=== PATIENT | female | born 1960 | race Hispanic/Latino ===

== ENCOUNTER 2019-01-10 14:52 | Emergency (ER) | payer OTHER ==
[~2019-01-10 14:52] MED LIST: ALPR0.25 PO; AMYL1CAP66 PO; FENT-77 TD; GABA-531 PO; HYDR1VIA2 IJ; LEVO500T2 PO; METR500T PO; PANT40I IV; SERT50TA12 PO; SIME80TA12 PO; [UNRECOGNIZED DRUG - OTHER]
[2019-01-10 15:53] LABS: APPEARANCE,URINE Clear (CLEAR); BILIRUBIN,URINE Negative (NEGATIVE); COLOR,URINE Yellow (YELLOW); GLUCOSE, URINE (UA) Negative (NEGATIVE); KETONES,URINE Negative (NEGATIVE); LEUKOCYTE ESTERASE ,URINE Trace (NEGATIVE); NITRATE,URINE Negative (NEGATIVE); OCCULT BLOOD,URINE Negative (NEGATIVE); PH,URINE 5.5 (5.0-8.0); PROTEIN,URINE Trace mg/dL (NEGATIVE); UROBILINOGEN,URINE 0.2 mg/dL (0.2-1.0)
[2019-01-10 16:15] LABS: RBC,URINE 0-1 /HPF (0-1)
[2019-01-10 16:16] LABS: BASOPHILS % (AUTO) 0.4 % (0.0-5.0); EOSINOPHILS % (AUTO) 0.3 % (0.0-8.0); HEMATOCRIT 30.9 % (36-48); LYMPHOCYTES % (AUTO) 17.1 % (21.0-51.0); MEAN CORPUSCULAR HGB CONC 32.9 g/dL (32.0-36.0); MONOCYTES % (AUTO) 5.4 % (3.0-13.0); NEUTROPHILS % (AUTO) 76.8 % (40.0-77.0); NUCLEATED RED BLOOD CELLS 0.1 % (0.0-0.19); PLATELET COUNT (AUTO) 251 K/uL (130-400); RED BLOOD CELL COUNT(AUTO) 4.07 MIL/uL (4.00-5.50); WHITE BLOOD COUNT (AUTO) 7.5 K/uL (4.8-10.8)
[2019-01-10 16:16] LABS: BACTERIA,URINE Rare /HPF (None Seen); SQUAMOUS EPITHELIAL CELL,UR Few /HPF (0-2)
[2019-01-10 16:30] LABS: CREATININE 0.7 mg/dL (0.5-1.5)
[2019-01-10 16:34] LABS: ALBUMIN 2.8 g/dL (3.5-5.0); BILIRUBIN,TOTAL 0.2 mg/dL (0.2-1.0); TOTAL PROTEIN, SERUM 7.8 g/dL (6.0-8.3)
[2019-01-10] MEDS ORDERED: ACETAMINOPHEN-CODEINE 300/30MG TAB ONE (16:40)
[2019-01-10] MEDS ORDERED: IOHEXOL-350 75 ML VIAL IV ONE (16:47)
[2019-01-10] MEDS ORDERED: POTASSIUM CHLORIDE 20 MEQ ERTAB PO ONE ×2 (17:06→17:07)
== END 2019-01-10 18:35 | disposition home or self-care (01) ==
LOC: EDH 14:52
DX: K86.3 Pseudocyst of pancreas (principal); I10 Essential (primary) hypertension; E11.9 Type 2 diabetes mellitus without complications; Z88.0 Allergy status to penicillin; Z88.5 Allergy status to narcotic agent; Z90.710 Acquired absence of both cervix and uterus; Z90.49 Acquired absence of other specified parts of digestive tract
CPT/HCPCS: 36415; 74177; 80053; 81001; 83690; 85025; 96360; 99285; Q9967

== ENCOUNTER 2019-02-03 11:10 | Inpatient (IN) | payer OTHER ==
[~2019-02-03] VITALS: Ht 160 cm; Wt 73.8 kg
[2019-02-03 12:01] LABS: BASOPHILS % (AUTO) 0.8 % (0.0-5.0); EOSINOPHILS % (AUTO) 0.6 % (0.0-8.0); HEMATOCRIT 28.6 % (36-48); MEAN CORPUSCULAR HEMOGLOBIN 25.2 pg (27.0-33.0); MEAN CORPUSCULAR VOLUME 76.4 fL (79-99); MONOCYTES % (AUTO) 9.4 % (3.0-13.0); NEUTROPHILS % (AUTO) 70.2 % (40.0-77.0); PLATELET COUNT (AUTO) 209 K/uL (130-400); RED BLOOD CELL COUNT(AUTO) 3.74 MIL/uL (4.00-5.50); RED CELL DISTRIBUTION WIDTH 16.2 % (11.0-15.5); WHITE BLOOD COUNT (AUTO) 6.4 K/uL (4.8-10.8)
[2019-02-03 12:09] LABS: APPEARANCE,URINE CLEAR (CLEAR); BILIRUBIN,URINE NEGATIVE (NEGATIVE); COLOR,URINE YELLOW (YELLOW); GLUCOSE, URINE (UA) NEGATIVE (NEGATIVE); KETONES,URINE NEGATIVE (NEGATIVE); LEUKOCYTE ESTERASE ,URINE TRACE (NEGATIVE); NITRATE,URINE NEGATIVE (NEGATIVE); OCCULT BLOOD,URINE NEGATIVE (NEGATIVE); PH,URINE 5.5 (5.0-8.0); PROTEIN,URINE NEGATIVE (NEGATIVE); UROBILINOGEN,URINE 0.2 mg/dL (0.2-1.0)
[2019-02-03] MEDS ORDERED: SODIUM CHLORIDE 0.9% 1000ML 1,000 ML IV ONE (12:10)
[2019-02-03] MEDS ORDERED: FENTANYL CITRATE PF 50 MCG/1 ML 2ML VIAL IVP ONE (12:16)
[2019-02-03] MEDS ORDERED: FAMOTIDINE/PF 20 MG/2 ML VIAL IV ONE (12:16)
[2019-02-03 12:17] LABS: CREATININE 1.1 mg/dL (0.5-1.5); POTASSIUM 3.5 mmol/L (3.5-5.1)
[2019-02-03 12:19] LABS: BACTERIA,URINE Few /HPF (None Seen); WBC,URINE 0-1 /HPF (0-1)
[2019-02-03 12:20] LABS: RBC,URINE 0-1 /HPF (0-1)
[2019-02-03 12:21] LABS: ALBUMIN 2.9 g/dL (3.5-5.0); BILIRUBIN,TOTAL 0.3 mg/dL (0.2-1.0); TOTAL PROTEIN, SERUM 8.2 g/dL (6.0-8.3)
[2019-02-03] MEDS ORDERED: 0.9% SODIUM CHLORIDE 1000 ML IV BAG IV ONE (12:57)
[2019-02-03] MEDS: LACTATED RINGERS 1000ML 1,000 ML IV SCH (16:15)
[2019-02-03] MEDS ORDERED: LEVOFLOXACIN 500 MG/D5W 100 ML 100 ML IV SCH (16:15)
[2019-02-03] MEDS ORDERED: ACETAMINOPHEN 325 MG TAB PO PRN (16:15)
[2019-02-03] MEDS ORDERED: METRONIDAZOLE 500MG/100ML BAG 100 ML ONE (16:38)
[2019-02-03] MEDS ORDERED: LACTATED RINGERS 1000ML 1,000 ML IV ONE (16:40)
[2019-02-03] MEDS ORDERED: HYDROMORPHONE 1 MG/1 ML AMP ONE (16:40)
[2019-02-03 19:12] VITALS: BP 131/73
[2019-02-03] MEDS: METRONIDAZOLE 500MG/100ML BAG 100 ML IV SCH (19:53)
[2019-02-03] MEDS: HYDROMORPHONE HCL 0.5 MG/0.5 ML ML IVP PRN (19:54)
[2019-02-03] MEDS: FAMOTIDINE/PF 20 MG/2 ML VIAL IV SCH (19:54)
[2019-02-03] MEDS: INSULIN HUMULIN R 100 UNIT/ML 3ML SQ SCH (21:00)
[2019-02-03] MEDS: ONDANSETRON HCL 4 MG/2 ML VIAL IV PRN (21:06)
[2019-02-04 00:24] VITALS: BP 106/68
[2019-02-04] MEDS: METRONIDAZOLE 500MG/100ML BAG 100 ML IV SCH ×3 (00:36→15:47)
[2019-02-04] MEDS: LACTATED RINGERS 1000ML 1,000 ML IV SCH ×2 (00:36→08:26)
[2019-02-04] MEDS: HYDROMORPHONE HCL 0.5 MG/0.5 ML ML IVP PRN ×3 (02:21→15:47)
[2019-02-04] MEDS: ONDANSETRON HCL 4 MG/2 ML VIAL IV PRN ×2 (02:29→15:53)
[2019-02-04 03:15] VITALS: BP 103/62
[2019-02-04] MEDS: INSULIN HUMULIN R 100 UNIT/ML 3ML SQ SCH ×4 (06:12→21:00)
[2019-02-04 06:13] LABS: HEMATOCRIT 26.4 % (36-48); MEAN CORPUSCULAR HEMOGLOBIN 25.1 pg (27.0-33.0); PLATELET COUNT (AUTO) 194 K/uL (130-400); RED BLOOD CELL COUNT(AUTO) 3.47 MIL/uL (4.00-5.50); RED CELL DISTRIBUTION WIDTH 15.7 % (11.0-15.5); WHITE BLOOD COUNT (AUTO) 5.7 K/uL (4.8-10.8)
[2019-02-04 06:36] LABS: ALBUMIN 2.4 g/dL (3.5-5.0); BILIRUBIN,TOTAL 0.3 mg/dL (0.2-1.0); CREATININE 0.8 mg/dL (0.5-1.5); POTASSIUM 4.7 mmol/L (3.5-5.1); TOTAL PROTEIN, SERUM 7.2 g/dL (6.0-8.3)
[2019-02-04 08:00] VITALS: BP 118/72
[2019-02-04] MEDS: ENOXAPARIN SODIUM 30 MG/0.3 ML SQ SCH (08:26)
[2019-02-04] MEDS: FAMOTIDINE/PF 20 MG/2 ML VIAL IV SCH ×2 (08:26→22:13)
--- NOTE | 2019-02-04 08:58 | NUR ---
CALL DR. KUMAR AT THIS TIME TO FOLLOW UP ON THE CONSULT. NO ANSWER AND WILL CALL BACK AGAIN LATER.
[2019-02-04 12:00] VITALS: BP 125/66
[2019-02-04] MEDS ORDERED: METF500T7 PO (13:04)
[2019-02-04] MEDS ORDERED: TRAZ-187 PO (13:04)
[2019-02-04] MEDS ORDERED: ESOM40CA54 PO (13:04)
[2019-02-04] MEDS ORDERED: LISI1TAB9 PO (13:04)
[2019-02-04] MEDS ORDERED: PREG150C PO (13:04)
[2019-02-04] MEDS ORDERED: ATOR-2 PO (13:04)
[2019-02-04] MEDS ORDERED: BACL20TA PO (13:04)
[2019-02-04] MEDS ORDERED: CREON12 PO (13:04)
[2019-02-04 13:40] LABS: % IRON SATURATION 7.7 % (22-44)
[2019-02-04 16:00] VITALS: BP 138/80
--- NOTE | 2019-02-04 17:12 | NUR ---
DCP CM met with pt discussed dc plans. Pt is independent prior to admission, lives at home with spouse. Denies any equipments/services. Pt feels safe to go back home, family able to assist with transportation and needs as necessary. DC plan to home once stable. CM to cont to follow up. Addendum: 02/04/19 at 1713 by FIGUEROA POWERS LVN CM Amended: Links added.
[2019-02-04] MEDS: LEVOFLOXACIN 500 MG/D5W 100 ML 100 ML IV SCH (19:00)
[2019-02-04] MEDS ORDERED: LORAZEPAM 2 MG/ML 1 ML VIAL IVP ONE (20:30)
[2019-02-04 20:32] VITALS: BP 140/78
[2019-02-04] MEDS ORDERED: LORAZEPAM 2 MG/ML 1 ML VIAL IVP SCH (20:45)
[2019-02-05] VITALS (7 sets, daily range): BP systolic 119–146; BP diastolic 67–84
[2019-02-05] MEDS: METRONIDAZOLE 500MG/100ML BAG 100 ML IV SCH ×4 (01:52→23:53)
[2019-02-05] MEDS: HYDROMORPHONE HCL 0.5 MG/0.5 ML ML IVP PRN ×4 (01:53→22:26)
[2019-02-05 05:44] LABS: HEMATOCRIT 26.1 % (36-48); MEAN CORPUSCULAR HEMOGLOBIN 25.4 pg (27.0-33.0); MEAN CORPUSCULAR HGB CONC 33.5 g/dL (32.0-36.0); MEAN CORPUSCULAR VOLUME 75.7 fL (79-99); PLATELET COUNT (AUTO) 182 K/uL (130-400); RED BLOOD CELL COUNT(AUTO) 3.45 MIL/uL (4.00-5.50); RED CELL DISTRIBUTION WIDTH 15.8 % (11.0-15.5); WHITE BLOOD COUNT (AUTO) 4.5 K/uL (4.8-10.8)
[2019-02-05] MEDS: INSULIN HUMULIN R 100 UNIT/ML 3ML SQ SCH ×4 (05:53→23:53)
[2019-02-05 05:59] LABS: ALANINE AMINOTRANSFERASE 9 U/L (12-78); ALBUMIN 2.4 g/dL (3.5-5.0); AMYLASE 19 U/L (25-115); ASPARTATE AMINOTRANSFERASE 16 U/L (10-37); BILIRUBIN,TOTAL 0.3 mg/dL (0.2-1.0); CARBON DIOXIDE 26 mmol/L (21-32); CHLORIDE 104 mmol/L (101-111); CREATININE 0.7 mg/dL (0.5-1.5); GLOMERULAR FILTR. RATE CALC 92 mL/min (>60); GLUCOSE,RANDOM 122 mg/dL (70-105); POTASSIUM 4.1 mmol/L (3.5-5.1); SODIUM SERUM 139 mmol/L (136-145); TOTAL PROTEIN, SERUM 7.1 g/dL (6.0-8.3); UREA NITROGEN, BLOOD 15 mg/dL (7-18)
[2019-02-05 06:00] LABS: LIPASE < 50 U/L (114-286)
[2019-02-05] MEDS: LACTATED RINGERS 1000ML 1,000 ML IV SCH ×3 (06:20→22:29)
[2019-02-05] MEDS: FERROUS SULFATE 325 MG TABLET.DR PO SCH ×3 (08:36→18:30)
[2019-02-05] MEDS: ENOXAPARIN SODIUM 30 MG/0.3 ML SQ SCH (08:37)
[2019-02-05] MEDS: FAMOTIDINE/PF 20 MG/2 ML VIAL IV SCH ×2 (08:38→22:28)
[2019-02-05] MEDS: LEVOFLOXACIN 500 MG/D5W 100 ML 100 ML IV SCH (18:27)
[2019-02-05] MEDS: ONDANSETRON HCL 4 MG/2 ML VIAL IV PRN (22:26)
[2019-02-06 03:00] VITALS: BP 142/66
[2019-02-06] MEDS: HYDROMORPHONE HCL 0.5 MG/0.5 ML ML IVP PRN ×3 (05:02→18:48)
[2019-02-06 05:05] LABS: HEMATOCRIT 27.3 % (36-48); MEAN CORPUSCULAR HEMOGLOBIN 24.9 pg (27.0-33.0); MEAN CORPUSCULAR VOLUME 75.4 fL (79-99); PLATELET COUNT (AUTO) 210 K/uL (130-400); RED BLOOD CELL COUNT(AUTO) 3.62 MIL/uL (4.00-5.50); RED CELL DISTRIBUTION WIDTH 15.5 % (11.0-15.5); WHITE BLOOD COUNT (AUTO) 4.3 K/uL (4.8-10.8)
[2019-02-06 05:20] LABS: CREATININE 0.7 mg/dL (0.5-1.5); POTASSIUM 3.9 mmol/L (3.5-5.1)
[2019-02-06] MEDS: INSULIN HUMULIN R 100 UNIT/ML 3ML SQ SCH ×4 (05:36→21:00)
[2019-02-06 08:00] VITALS: BP 138/70
[2019-02-06] MEDS: FERROUS SULFATE 325 MG TABLET.DR PO SCH ×3 (08:00→17:00)
[2019-02-06] MEDS: METRONIDAZOLE 500MG/100ML BAG 100 ML IV SCH ×3 (09:27→22:33)
[2019-02-06] MEDS: FAMOTIDINE/PF 20 MG/2 ML VIAL IV SCH ×2 (09:27→22:34)
[2019-02-06] MEDS: ENOXAPARIN SODIUM 30 MG/0.3 ML SQ SCH (09:28)
[2019-02-06] MEDS: LACTATED RINGERS 1000ML 1,000 ML IV SCH ×2 (09:53→16:15)
[2019-02-06 12:00] VITALS: BP 153/83
[2019-02-06] MEDS ORDERED: COMPOUND IV MISC 1 EACH IVSOLN MISC PRN (12:15)
[2019-02-06 16:00] VITALS: BP 130/76
[2019-02-06] MEDS: LEVOFLOXACIN 500 MG/D5W 100 ML 100 ML IV SCH (18:10)
[2019-02-06] MEDS ORDERED: HYDROMORPHONE 1 MG/1 ML AMP ONE (18:48)
[2019-02-06 19:00] VITALS: BP 154/88
--- NOTE | 2019-02-06 20:08 | NUR ---
administered 0.25 mg of dilaudid. over 1 mg and wasted the 0.75 mg
[2019-02-06] MEDS: TRAZODONE HCL 100 MG TABLET PO SCH (22:34)
[2019-02-06 23:15] VITALS: BP 130/78
[2019-02-07] MEDS: LACTATED RINGERS 1000ML 1,000 ML IV SCH ×2 (00:45→09:15)
[2019-02-07 03:15] VITALS: BP 129/60
[2019-02-07 05:48] LABS: HEMATOCRIT 25.9 % (36-48); MEAN CORPUSCULAR HEMOGLOBIN 25.4 pg (27.0-33.0); MEAN CORPUSCULAR HGB CONC 33.5 g/dL (32.0-36.0); MEAN CORPUSCULAR VOLUME 75.9 fL (79-99); PLATELET COUNT (AUTO) 191 K/uL (130-400); RED BLOOD CELL COUNT(AUTO) 3.41 MIL/uL (4.00-5.50); RED CELL DISTRIBUTION WIDTH 15.4 % (11.0-15.5); WHITE BLOOD COUNT (AUTO) 3.4 K/uL (4.8-10.8)
[2019-02-07 05:55] LABS: CREATININE 0.7 mg/dL (0.5-1.5); POTASSIUM 3.1 mmol/L (3.5-5.1)
[2019-02-07] MEDS: INSULIN HUMULIN R 100 UNIT/ML 3ML SQ SCH ×4 (06:09→21:00)
[2019-02-07 07:00] VITALS: BP 137/70
[2019-02-07] MEDS ORDERED: IRON SUCROSE COMPLEX 100 MG in SODIUM CHLORIDE 0.9% 50 ML IV SCH (09:00)
[2019-02-07] MEDS: METRONIDAZOLE 500MG/100ML BAG 100 ML IV SCH ×2 (09:07→15:28)
[2019-02-07] MEDS: FERROUS SULFATE 325 MG TABLET.DR PO SCH ×3 (09:07→17:01)
[2019-02-07] MEDS: FAMOTIDINE/PF 20 MG/2 ML VIAL IV SCH ×2 (09:07→21:19)
[2019-02-07] MEDS: ENOXAPARIN SODIUM 30 MG/0.3 ML SQ SCH (09:08)
[2019-02-07 11:00] VITALS: BP 149/77
[2019-02-07] MEDS ORDERED: LIDOCAINE HCL-MPF 1% 2ML VIAL IVP PRN (12:30)
[2019-02-07] MEDS ORDERED: HYDROCODONE/ACETAMINOPHEN 5/325 MG TAB PO PRN (12:30)
[2019-02-07] MEDS ORDERED: POTASSIUM CHLORIDE 10% ELIXIR 20 MEQ/15 ML UDCUP PO PRN (12:30)
[2019-02-07] MEDS ORDERED: POTASSIUM CHLORIDE 20MEQ/100ML 100 ML IV PRN (12:30)
[2019-02-07] MEDS: POTASSIUM CHLORIDE 20 MEQ ERTAB PO PRN ×3 (12:50→17:01)
[2019-02-07 16:00] VITALS: BP 140/68
[2019-02-07] MEDS: LEVOFLOXACIN 500 MG/D5W 100 ML 100 ML IV SCH (17:01)
[2019-02-07 20:18] VITALS: BP 130/75
[2019-02-07] MEDS: TRAZODONE HCL 100 MG TABLET PO SCH (21:18)
[2019-02-07 23:58] VITALS: BP 119/73
[2019-02-08] MEDS: METRONIDAZOLE 500MG/100ML BAG 100 ML IV SCH (00:15)
[2019-02-08 04:40] VITALS: BP 123/65
[2019-02-08 05:36] LABS: HEMATOCRIT 27.7 % (36-48); MEAN CORPUSCULAR HEMOGLOBIN 24.4 pg (27.0-33.0); MEAN CORPUSCULAR HGB CONC 32.2 g/dL (32.0-36.0); MEAN CORPUSCULAR VOLUME 75.6 fL (79-99); PLATELET COUNT (AUTO) 238 K/uL (130-400); RED BLOOD CELL COUNT(AUTO) 3.66 MIL/uL (4.00-5.50); RED CELL DISTRIBUTION WIDTH 15.7 % (11.0-15.5); WHITE BLOOD COUNT (AUTO) 4.8 K/uL (4.8-10.8)
[2019-02-08 05:50] LABS: ALBUMIN 2.4 g/dL (3.5-5.0); BILIRUBIN,TOTAL 0.2 mg/dL (0.2-1.0); CREATININE 0.7 mg/dL (0.5-1.5); POTASSIUM 3.7 mmol/L (3.5-5.1); TOTAL PROTEIN, SERUM 6.8 g/dL (6.0-8.3)
[2019-02-08 07:00] VITALS: BP 134/73
[2019-02-08] MEDS ORDERED: FERS325 PO (07:16)
[2019-02-08] MEDS ORDERED: METR-172 PO ×2 (07:16→07:27)
[2019-02-08] MEDS ORDERED: LEVO250T59 PO (07:16)
[2019-02-08] MEDS: INSULIN HUMULIN R 100 UNIT/ML 3ML SQ SCH (07:30)
[2019-02-08] MEDS ORDERED: LEVOFLOXACIN 500 MG TABLET PO SCH (07:30)
--- NOTE | 2019-02-08 11:03 | NUR ---
PATIENT DISCHARGE PATIENT DISCHARGED, IV DISCONTINUED, CATHLON INTACT, BLEEDING CONTROLLED, PATIENT TOLERATED WITHOUT INCIDENT.
== END 2019-02-08 11:15 | disposition home or self-care (01) | DRG 438 ==
LOC: EDH 11:10 → EDHIP 16:09 → 3BH 18:09
PROVIDERS: ADMIT Hospitalist; ATTEND Hospitalist
DX: K85.90 Acute pancreatitis without necrosis or infection, unspecified (principal); K65.8 Other peritonitis; K86.3 Pseudocyst of pancreas; K86.89 Other specified diseases of pancreas; E86.0 Dehydration; E11.9 Type 2 diabetes mellitus without complications; D64.9 Anemia, unspecified; M79.7 Fibromyalgia; E66.9 Obesity, unspecified; E78.5 Hyperlipidemia, unspecified; E87.6 Hypokalemia; I10 Essential (primary) hypertension; K59.00 Constipation, unspecified; Z68.28 Body mass index [BMI] 28.0-28.9, adult; Z88.0 Allergy status to penicillin; Z90.710 Acquired absence of both cervix and uterus; Z83.3 Family history of diabetes mellitus; Z82.49 Family history of ischemic heart disease and other diseases of the circulatory system; Z80.0 Family history of malignant neoplasm of digestive organs; Z84.89 Family history of other specified conditions
CPT/HCPCS: 36415; 71045; 74176; 80048; 80053; 81001; 82150; 82270; 82948; 83540; 83550; 83605; 83690; 84484; 85025; 85027; 93005; 99291; G0378; J1170; J1650; J1756; J1956; J2060; J2405; J3010; J3490; J7030; J7120

== ENCOUNTER 2019-04-03 09:19 | Day surgery (SDC) | payer OTHER ==
[~2019-04-03] VITALS: Ht 160 cm; Wt 71.2 kg
[2019-04-03] VITALS (15 sets, daily range): BP systolic 109–139; BP diastolic 55–72
[~2019-04-03 09:19] MED LIST changes: -ALPR0.25 PO; -AMYL1CAP66 PO; +ATOR-2 PO; +BACL20TA PO; +CREON12 PO; +ESOM40CA54 PO; -FENT-77 TD; +FERS325 PO; -GABA-531 PO; -HYDR1VIA2 IJ; +LEVO250T59 PO; -LEVO500T2 PO; +LISI1TAB9 PO; +METF500T7 PO; +METR-172 PO; -METR500T PO; -PANT40I IV; +PREG150C PO; +PROPOFOL 10 MG/ML 20ML VIAL IV ONE; -SIME80TA12 PO; +SODIUM CHLORIDE 0.9% 1000ML 1,000 ML IV ONE; +TRAZ-187 PO; -[UNRECOGNIZED DRUG - OTHER]
[2019-04-03] MEDS ORDERED: SUCCINYLCHOLINE CHLORIDE 20 MG/ML 10 ML VIAL ONE (13:17)
[2019-04-03] MEDS ORDERED: IOHEXOL-350 50ML VIAL IV ONE (13:21)
[2019-04-03] MEDS ORDERED: INDOMETHACIN 50 MG SUPP.RECT RC ONE (14:30)
== END 2019-04-03 16:06 | disposition home or self-care (01) ==
LOC: ENDO 09:19 → DAH 09:19 → ENDO 16:06
PROVIDERS: ATTEND Internal Medicine
DX: K86.89 Other specified diseases of pancreas (principal); E78.5 Hyperlipidemia, unspecified; F32.9 Major depressive disorder, single episode, unspecified; F41.9 Anxiety disorder, unspecified; E11.9 Type 2 diabetes mellitus without complications; M81.0 Age-related osteoporosis without current pathological fracture; K21.9 Gastro-esophageal reflux disease without esophagitis; I10 Essential (primary) hypertension; F10.21 Alcohol dependence, in remission; D50.9 Iron deficiency anemia, unspecified; M19.90 Unspecified osteoarthritis, unspecified site; Z88.0 Allergy status to penicillin; Z90.49 Acquired absence of other specified parts of digestive tract; Z90.710 Acquired absence of both cervix and uterus; Z98.890 Other specified postprocedural states; Z79.84 Long term (current) use of oral hypoglycemic drugs; Z79.2 Long term (current) use of antibiotics; Z79.899 Other long term (current) drug therapy; Z82.49 Family history of ischemic heart disease and other diseases of the circulatory system; Z83.3 Family history of diabetes mellitus
CPT/HCPCS: 43260; 74330; 82948 ×2; A4606; C1769; J0330; J2704 ×2; J7030; Q9967

== ENCOUNTER 2022-04-28 05:59 | Inpatient (IN) | payer OTHER ==
[2022-04-23 14:00] LABS: BASOPHILS % (AUTO) 1.5 % (0.0-5.0); EOSINOPHILS % (AUTO) 2.4 % (0.0-8.0); HEMATOCRIT 36.7 % (36-48); MEAN CORPUSCULAR HEMOGLOBIN 27.2 pg (27.0-33.0); MEAN CORPUSCULAR HGB CONC 32.4 g/dL (32.0-36.0); MEAN CORPUSCULAR VOLUME 83.8 fL (79-99); MONOCYTES % (AUTO) 6.8 % (3.0-13.0); NEUTROPHILS % (AUTO) 53.1 % (40.0-77.0); PLATELET COUNT (AUTO) 230 K/uL (130-400); RED BLOOD CELL COUNT(AUTO) 4.38 MIL/uL (4.00-5.50); RED CELL DISTRIBUTION WIDTH 13.4 % (11.0-15.5); WHITE BLOOD COUNT (AUTO) 4.6 K/uL (4.8-10.8)
[2022-04-23 14:14] LABS: ALBUMIN 3.8 g/dL (3.5-5.0); POTASSIUM 3.6 mmol/L (3.5-5.1); TOTAL PROTEIN, SERUM 7.6 g/dL (6.0-8.3)
[2022-04-23 14:27] LABS: CREATININE 0.8 mg/dL (0.5-1.5)
[2022-04-27 14:37] VITALS: BP 140/83
[2022-04-28] VITALS (22 sets, daily range): BP systolic 95–157; BP diastolic 44–86
[~2022-04-28] VITALS: Ht 160 cm; Wt 83.0 kg
[~2022-04-28 05:59] MED LIST changes: +AMIT25TA9 PO; +BUSP5TAB3 PO; +CELE100C PO; -CREON12 PO; -ESOM40CA54 PO; -FERS325 PO; -LEVO250T59 PO; +LISI1TAB49 PO; -LISI1TAB9 PO; +METF-446 PO; -METF500T7 PO; -METR-172 PO; +OMEP40CA21 PO; -PROPOFOL 10 MG/ML 20ML VIAL IV ONE; -SERT50TA12 PO; -SODIUM CHLORIDE 0.9% 1000ML 1,000 ML IV ONE
[2022-04-28] MEDS ORDERED: PHARMACY COMMUNICATION MISC SCH (06:30)
[2022-04-28] MEDS ORDERED: METRONIDAZOLE 500MG/100ML BAG 100 ML ONE (06:30)
[2022-04-28] MEDS ORDERED: 0.9%NACL 1000ML 1,000 ML IV ONE (06:31)
[2022-04-28] MEDS ORDERED: CEFAZOLIN SODIUM 1 GM VIAL ONE (06:31)
[2022-04-28] MEDS ORDERED: BUPIVACAINE/PF 0.25% 30ML VIAL IJ ONE (06:45)
[2022-04-28] MEDS: METRONIDAZOLE 500MG/100ML BAG 100 ML IVPB SCH (07:00)
[2022-04-28] MEDS: CEFAZOLIN SODIUM 1 GM VIAL IVP SCH (07:00)
[2022-04-28] MEDS: SCOPOLAMINE HYDROBROMIDE 1 EACH ADH..PATCH TD ONE ×2 (07:11→07:45)
[2022-04-28] MEDS ORDERED: PROPOFOL 10 MG/ML 20ML VIAL IV ONE ×2 (07:14→10:40)
[2022-04-28] MEDS ORDERED: GLYCOPYRROLATE 1 MG/5 ML SYRINGE ONE (07:14)
[2022-04-28] MEDS ORDERED: ONDANSETRON 4MG INJ ONE (07:14)
[2022-04-28] MEDS ORDERED: LIDOCAINE PF 100MG/5ML (2%) SYRINGE 5ML ONE (07:14)
[2022-04-28] MEDS ORDERED: MIDAZOLAM HCL 1 MG/ML 2ML VIAL ONE (07:14)
[2022-04-28] MEDS ORDERED: SUCCINYLCHOLINE 200MG/10ML SYR ONE (07:14)
[2022-04-28] MEDS ORDERED: DEXAMETHASONE SOD PHOSPHATE 10MG/ML 1ML VIAL ONE (07:14)
[2022-04-28] MEDS ORDERED: NEOSTIGMINE 5MG/5ML SYR IV ONE (07:14)
[2022-04-28] MEDS ORDERED: ROCURONIUM 10MG/1ML SYR 10 MG/ML ML ONE ×2 (07:15→09:06)
[2022-04-28] MEDS ORDERED: PHENYLEPHRINE HCL 10 MG/ML 1ML VIAL IV ONE (07:15)
[2022-04-28] MEDS ORDERED: FENTANYL CITRATE PF 50 MCG/1 ML 2ML VIAL ONE (07:15)
[2022-04-28] MEDS ORDERED: CLINDAMYCIN IVPB 900MG/50ML 50 ML IV ONE (07:43)
[2022-04-28] MEDS ORDERED: KETAMINE HCL 50MG/ML 10ML VIAL IJ ONE (07:49)
[2022-04-28] MEDS: ENOXAPARIN SODIUM 30 MG/0.3 ML SQ SCH ×2 (11:30→22:31)
[2022-04-28] MEDS ORDERED: ONDANSETRON 4MG INJ IVP PRN (11:30)
[2022-04-28] MEDS ORDERED: PROCHLORPERAZINE 10MG/2ML INJ IV PRN (11:30)
[2022-04-28] MEDS: KETOROLAC 30MG VIAL (30MG/ML) IV PRN ×2 (14:15→22:32)
[2022-04-28] MEDS: HYDROCODONE/ACETAMINOPHEN 7.5/325 MG 15 ML UDCUP PO PRN ×2 (16:51→20:55)
[2022-04-28] MEDS: 1/2NS+20MEQ KCL/1000ML 1,000 ML IV SCH ×3 (18:10→23:50)
[2022-04-29] VITALS: BP 142/73
[2022-04-29] MEDS: CEFAZOLIN SODIUM 1 GM VIAL IVP SCH (00:36)
[2022-04-29] MEDS: METRONIDAZOLE 500MG/100ML BAG 100 ML IVPB SCH (00:36)
[2022-04-29] MEDS: HYDROCODONE/ACETAMINOPHEN 7.5/325 MG 15 ML UDCUP PO PRN ×4 (02:07→13:33)
[2022-04-29 04:00] VITALS: BP 137/69
[2022-04-29] MEDS: 1/2NS+20MEQ KCL/1000ML 1,000 ML IV SCH ×2 (05:22→14:10)
[2022-04-29 08:01] VITALS: BP 135/65
[2022-04-29 11:49] VITALS: BP 158/75
[2022-04-29] MEDS: ENOXAPARIN SODIUM 30 MG/0.3 ML SQ SCH (12:34)
== END 2022-04-29 16:30 | disposition home or self-care (01) | DRG 328 ==
LOC: OBSVTOIN 05:59 → INTOOBSV 05:59 → DAHIP 05:59 → 4AH 12:11 → EDSTATUS 12:12
PROVIDERS: ADMIT Surgery; ATTEND Surgery
PROC: 0BQT4ZZ Repair Diaphragm, Percutaneous Endoscopic Approach (ICD-10-PCS; principal; 2022-04-28 07:54)
PROC: 0D164ZA Bypass Stomach to Jejunum, Percutaneous Endoscopic Approach (ICD-10-PCS; 2022-04-28 07:54)
PROC: 0DJ08ZZ Inspection of Upper Intestinal Tract, Via Natural or Artificial Opening Endoscopic (ICD-10-PCS; 2022-04-28 07:54)
DX: K44.9 Diaphragmatic hernia without obstruction or gangrene (principal); K31.84 Gastroparesis; Z20.822 Contact with and (suspected) exposure to COVID-19; E66.9 Obesity, unspecified; Z68.32 Body mass index [BMI] 32.0-32.9, adult
CPT/HCPCS: 36415; 43235; 80053; 82948; 85025; 86850; 86900; 86901; 87426; 93005; G0378; J0330; J0690; J1100; J1650; J1885; J2001; J2250; J2370; J2405; J2704; J2710; J3010; J3480; J3490; J7030; J7120